=== PATIENT | female | born 1965 | race Caucasian/White ===

== ENCOUNTER 2016-10-25 17:51 | Emergency (ER) | payer OTHER ==
[~2016-10-25] VITALS: Ht 165.1 cm; Wt 61.8 kg
[~2016-10-25 17:51] MED LIST: AMBI10TA PO; AMLO10TA2 PO; BUTA1CAP PO; BUTA1TAB30 PO; CARA1TAB6 PO; CLON1 PO; IPRA17I INH; PAXI20TA PO; PROM25TA5 PO; ROBA750T PO; SERO100T PO; ZANA4CAP PO; ZOFR4TAB PO; ZOFR4TAB3 SL
[2016-10-25 17:54] VITALS: BP 138/84; PULSE 82; RESP 16; TEMP 98; O2SAT 98
== END 2016-10-25 17:52 | disposition left against medical advice (07) ==
LOC: NETRI 17:51
DX: R10.9 Unspecified abdominal pain (principal); Z53.21 Procedure and treatment not carried out due to patient leaving prior to being seen by health care provider
CPT/HCPCS: 99281

== ENCOUNTER 2016-10-27 11:52 | Emergency (ER) | payer OTHER ==
[~2016-10-27] VITALS: Ht 165.1 cm; Wt 60.0 kg
[2016-10-27 11:55] VITALS: BP 140/93; PULSE 93; RESP 16; TEMP 98; O2SAT 95
[2016-10-27] MEDS ORDERED: PROC10TA PO (12:59)
== END 2016-10-27 11:55 | disposition left against medical advice (07) ==
LOC: NED 11:52
DX: R11.10 Vomiting, unspecified (principal); Z53.21 Procedure and treatment not carried out due to patient leaving prior to being seen by health care provider
CPT/HCPCS: 99281

== ENCOUNTER 2016-10-27 12:32 | Emergency (ER) | payer OTHER ==
[~2016-10-27] VITALS: Ht 165.1 cm; Wt 63.0 kg
[2016-10-27 12:40] VITALS: BP 131/85; PULSE 79; RESP 16; TEMP 98.4; O2SAT 98
[2016-10-27] MEDS ORDERED: PROC10TA PO (12:59)
[2016-10-27] MEDS ORDERED: SODIUM CHLOR 0.9% 1000 ML INJ 1,000 ML IV SCH (13:01)
[2016-10-27] MEDS ORDERED: SODIUM CHLORIDE 0.9% FLUSH 5 ML FLUSH IVF PRN (13:15)
[2016-10-27] MEDS ORDERED: ONDANSETRON HCL 4 MG/2 ML VIAL IVP ONE (13:15)
[2016-10-27] MEDS ORDERED: SODIUM CHLOR 0.9% 1000 ML INJ 1,000 ML IV ONE (13:15)
[2016-10-27] MEDS ORDERED: DICYCLOMINE HCL 10 MG CAP PO ONE (13:15)
[2016-10-27] MEDS ORDERED: FAMOTIDINE 20 MG/2 ML VIAL IV PUSH ONE (13:15)
--- NOTE | 2016-10-27 13:24 | PD ---
HPI Chief Complaint: GI Complaint Time Seen by Provider: 13:01 Travel History International Travel<30 days: No Contact w/Intl Traveler<30days: No Traveled to known affect area: No History of Present Illness HPI Patient is a 51-year-old ill who presents to emergency room with complaints of nausea vomiting and diarrhea. Patient reports that for the past week and a half , she has been feeling nauseous and has been dry heaving. Reports that she has also been having diarrhea, reports that she has been having multiple episodes of diarrhea. Reports that she her legs are "crampy" and have been crampy for the past week. Reports concern that she may be dehydrated as she cannot keep up with her fluids at this time. Reports that she follow-up with primary care doctor for her symptoms, reports that stool cultures are pending at this time. Patient reports that she is not taken any antibiotics recently. Reports no sick contacts. Denies chest pain/sob. Denies fevers or chills PFSH Past Medical History Anemia: Yes (PERNICIOUS ANEMIA) Arthritis: No Asthma: Yes Blood Disorders: No Anxiety: Yes (ADHD) Depression: No Heart Rhythm Problems: No Cancer: Yes (skin cancer, MOHS PROCEDURE) Cardiovascular Problems: Yes (IRREGULAR HEART BEAT) High Cholesterol: No Chemotherapy: No Chest Pain: No Congestive Heart Failure: No COPD: No Diabetes: No Diminished Hearing: No Endocrine: Yes (diabetes until wt loss) Gastrointestinal Disorders: Yes (gastritis) GERD: No Genitourinary: No Hepatitis: No Hiatal Hernia: Yes (REPAIRED, MULTIPLE HERNIAS) Heparin Induced Thrombocytopen: No Hypertension: Yes (prior to wt loss) Immune Disorder: No Implanted Vascular Access Dvce: No Medical other: No Musculoskeletal: Yes (ARTHRITIS IN THE NECK) Neurologic: Yes (C5 C6 INJURY FROM RECENT MRI ) Psychiatric: Yes Reproductive: Yes Respiratory: Yes (ASTHMA) Immunizations Current: Yes Radiation Therapy: No Sickle Cell Disease: No Sleep Apnea: No Thyroid Disease: No Ulcer: Yes (ANASTOMOTIC) Influenza Vaccination: Yes PNEUMOCCOCAL Vaccine (Year): 1 ?: Not Menopausal: Yes : 2 Para: 2 Tubal Ligation: Yes (1991) Past Surgical History Abdominal Surgery: Yes (PAYTON - EN - Y & HIATAL HERNIA REPAIR 2008/right colectomy) AICD: No Appendectomy: Yes (REMOVED WITH RIGHT COLECTOMY) Cardiac Surgery: No Cholecystectomy: Yes (1989) Ear Surgery: No Endocrine Surgery: No Eye Surgery: No Genitourinary Surgery: No Gynecologic Surgery: Yes Hysterectomy: Yes Joint Replacement: No Neurologic Surgery: No Oral Surgery: Yes (WISDOM TEETH REMOVED X 4 2009) Pacemaker: No Thoracic Surgery: No Other Surgery: Yes (gastric bypass, annette,hysterectomy,right hemicollectomy, explortary repair ) Social History Alcohol Use: Yes (OCCASIONAL ) Tobacco Use: No (QUIT 1987) Substance Use: No Allergies-Medications (Allergen,Severity, Reaction): Coded Allergies: Aleve (Verified Allergy, Severe, Shortness of Breath, 10/27/16) Ceftin (Unverified Allergy, Severe, SHORTNESS OF BREATH, 10/27/16) Flagyl (Verified Allergy, Severe, couldn't breathe, 10/27/16) Inapsine (Verified Allergy, Severe, SVT, 10/27/16) Metronidazole (Verified Allergy, Severe, Shortness of Breath, 10/27/16) Prevacid (Verified Allergy, Severe, Shortness of Breath, 10/27/16) Stadol (Verified Allergy, Severe, SHOCK, 10/27/16) Sulfa (Verified Allergy, Severe, SOB, WHEEZING, 10/27/16) Lisinopril (Verified Allergy, Unknown, Anaphylaxis, 10/27/16) Naprosyn (Verified Allergy, Unknown, 10/27/16) Compazine (Verified Adverse Reaction, Intermediate, Irritability/Anxiety, 10/27/16) Reported Meds & Prescriptions Reported Meds & Active Scripts Active Phenergan (Promethazine HCl) 25 Mg Tab 25 Mg PO Q6H PRN Zofran Odt (Ondansetron Odt) 4 Mg Tab 4 Mg SL Q8HR PRN Robaxin (Methocarbamol) 750 Mg Tab 750 Mg PO TID Reported Atrovent HFA 12.9 GM Inh (Ipratropium [place]) 17 Mcg/Act Aer 2 Puff INH QID Zofran (Ondansetron HCl) 4 Mg Tab 4 Mg PO Q6HR PRN Ambien (Zolpidem Tartrate) 10 Mg Tab 10 Mg PO HS PRN Zanaflex (Tizanidine HCl) 4 Mg Cap 4 Mg PO TID Klonopin (Clonazepam) 1 Mg Tab 1 Mg PO HS Amlodipine (Amlodipine Besylate) 10 Mg Tab 10 Mg PO DAILY Review of Systems General / Constitutional: No: Fever, Chills Eyes: No: Visual changes HENT: No: Headaches Cardiovascular: No: Chest Pain or Discomfort Respiratory: No: Shortness of Breath Gastrointestinal: Positive: Nausea, Vomiting, Diarrhea, No: Abdominal Pain, Constipation Genitourinary: No: Dysuria Musculoskeletal: No: Pain Skin: No Rash Neurologic: No: Weakness Psychiatric: No: Depression Endocrine: No: Polydipsia Hematologic/Lymphatic: No: Easy Bruising Physical Exam Narrative GENERAL: Nontoxic, no acute distress SKIN: Warm and dry. HEAD: Atraumatic. Normocephalic. EYES: No injection or drainage. ENT: No nasal bleeding or discharge. Mucous membranes pink and moist. NECK: Trachea midline. No JVD. CARDIOVASCULAR: Regular rate and rhythm. No murmur appreciated. RESPIRATORY: No accessory muscle use. Clear to auscultation. Breath sounds equal bilaterally. GASTROINTESTINAL: Abdomen soft, non-tender, nondistended. Hepatic and splenic margins not palpable. MUSCULOSKELETAL: No obvious deformities. No clubbing. No cyanosis. No edema. NEUROLOGICAL: Awake and alert. No obvious cranial nerve deficits. Motor grossly within normal limits. Normal speech. PSYCHIATRIC: Appropriate mood and affect; insight and judgment normal. Data Data Last Documented VS Vital Signs Date Time Temp Pulse Resp B/P Pulse Ox O2 Delivery O2 Flow Rate FiO2 10/27/16 14:42 82 18 134/80 98 Room Air 10/27/16 12:40 98.4 Orders Complete Blood Count With Diff (10/27/16 13:01) Comprehensive Metabolic Panel (10/27/16 13:01) Lipase (10/27/16 13:01) Prothrombin Time / Inr (Pt) (10/27/16 13:01) Act Partial Throm Time (Ptt) (10/27/16 13:01) Urinalysis - C+S If Indicated (10/27/16 13:01) Iv Access Insert/Monitor (10/27/16 13:01) Ondansetron Inj (Zofran Inj) (10/27/16 13:15) Sodium Chlor 0.9% 1000 Ml Inj (Ns 1000 M (10/27/16 13:01) Sodium Chloride 0.9% Flush (Ns Flush) (10/27/16 13:15) Famotidine Inj (Pepcid Inj) (10/27/16 13:15) Dicyclomine (Bentyl) (10/27/16 13:15) Sodium Chlor 0.9% 1000 Ml Inj (Ns 1000 M (10/27/16 13:15) Labs Laboratory Tests Test 10/27/16 10/27/16 13:10 13:20 Urine Collection Type CLEAN CATCH Urine Color YELLOW Urine Turbidity CLEAR Urine pH 5.5 Urine Specific [place] 1.016 Urine Protein NEG mg/dL Urine Glucose (UA) NEG mg/dL Urine Ketones NEG mg/dL Urine Occult Blood NEG Urine Nitrite NEG Urine Bilirubin NEG Urine Leukocyte Esterase NEG Urine WBC 0-2 /hpf Urine Squamous Epithelial 0-5 /hpf Cells Urine Hyaline Casts 6-9 /lpf Microscopic Urinalysis Comment CULT NOT INDICATED Urine Collection Time 13:10 White Blood Count 5.8 TH/MM3 Red Blood Count 5.24 MIL/MM3 Hemoglobin 14.9 GM/DL Hematocrit 45.1 % Mean Corpuscular Volume 86.1 FL Mean Corpuscular Hemoglobin 28.4 PG Mean Corpuscular Hemoglobin 33.0 % Concent Red Cell Distribution Width 14.8 % Platelet Count 204 TH/MM3 Mean Platelet Volume 7.6 FL Neutrophils (%) (Auto) 78.0 % Lymphocytes (%) (Auto) 12.3 % Monocytes (%) (Auto) 8.4 % Eosinophils (%) (Auto) 0.9 % Basophils (%) (Auto) 0.4 % Neutrophils # (Auto) 4.5 TH/MM3 Lymphocytes # (Auto) 0.7 TH/MM3 Monocytes # (Auto) 0.5 TH/MM3 Eosinophils # (Auto) 0.1 TH/MM3 Basophils # (Auto) 0.0 TH/MM3 CBC Comment DIFF FINAL Differential Comment Prothrombin Time 9.9 SEC Prothromb Time International 0.9 RATIO Ratio Activated Partial 26.0 SEC Thromboplast Time Sodium Level 136 MEQ/L Potassium Level 4.2 MEQ/L Chloride Level 101 MEQ/L Carbon Dioxide Level 25.6 MEQ/L Anion Gap 9 MEQ/L Blood Urea Nitrogen 8 MG/DL Creatinine 0.68 MG/DL Estimat Glomerular Filtration 91 ML/MIN Rate Random Glucose 81 MG/DL Calcium Level 8.6 MG/DL Total Bilirubin 0.3 MG/DL Aspartate Amino Transf 27 U/L (AST/SGOT) Alanine Aminotransferase 36 U/L (ALT/SGPT) Alkaline Phosphatase 116 U/L Total Protein 7.9 GM/DL Albumin 3.9 GM/DL Lipase 108 U/L MDM Medical Decision Making Medical Screen Exam Complete: Yes Emergency Medical Condition: Yes Interpretation(s) Vital Signs Date Time Temp Pulse Resp B/P Pulse Ox O2 Delivery O2 Flow Rate FiO2 10/27/16 12:40 98.4 79 16 131/85 98 Differential Diagnosis Gastroenteritis, electrolyte abnormality, C difficile Narrative Course Patient is a 51-year-old female who presents to emergency room with complaints of nausea, dry heaves and diarrhea for the past week and half. Patient reports that she just returned from a chair from [place], reports that symptoms began on her plane ride home from [facility]. Reports that she has no abdominal pain, reports that she has been feeling dehydrated. Reports nausea with dry heaves and multiple episodes of diarrhea. She reports that she was told to go to the emergency room by her primary care doctor for IV hydration. CBC, CMP, ordered. IV hydration as well as antiemetics ordered as well cbc WBC 5.8 Hemoglobin 14.9 Hematocrit 45.1 Platelets 204 BMP Sodium 136 Chloride 101 Potassium 4.2 Carbon dioxide 25.6 BUN 8 Creatinine 0.60 AST 27 ALT 36 Lipase 108 UA: Negative for leuk esterase, negative for nitrites, negative for ketones Patient reports that she is feeling much better after 1 L fluid given to her. Another liter of IVF given to her. Reviewed all labs and studies with patient. Copies of labs given to pt. Abd is soft, nt/nd, no peritoneal signs on discharge , will discharge patient to home with instructions to follow up with pcp and return to ER as needed. Diagnosis Primary Impression: Nausea vomiting and diarrhea Patient Instructions: General Instructions Departure Forms: Tests/Procedures, Work Release Enter return to work date: Oct 30, 2016 Additional Instructions: Please follow-up with your primary care doctor Return to ER as needed Please drink plenty of fluids and stay hydrated Disposition: 01 DISCHARGE HOME Condition: Stable DavTari Sai DO Oct 27, 2016 13:24
[2016-10-27 13:28] LABS: BLOOD, URINE NEG (NEG); GLUCOSE,URINE NEG (NEG); KETONE, URINE NEG (NEG); NITRITE,URINE NEG (NEG); PH, URINE 5.5 (5.0-8.5)
[2016-10-27 13:28] LABS: AUTOMATED NEUTROPHIL # 4.5 TH/MM3 (1.8-7.7); BASOPHIL % 0.4 % (0.0-2.0); EOSINOPHIL # 0.1 TH/MM3 (0-0.4); EOSINOPHIL % 0.9 % (0.0-4.0); HEMATOCRIT 45.1 % (35.0-46.0); HEMO FLAGS DIFF FINAL; LYMPH % 12.3 % (9.0-44.0); LYMPHOCYTE # 0.7 TH/MM3 (1.0-4.8); MEAN CELL VOLUME 86.1 FL (80.0-100.0); MEAN CORPUSCULAR HEMOGLOBIN 28.4 PG (27.0-34.0); MONO % 8.4 % (0.0-8.0); PLATELET COUNT 204 TH/MM3 (150-450); RED BLOOD COUNT 5.24 MIL/MM3 (4.00-5.30); RED CELL DISTRIBUTION WIDTH 14.8 % (11.6-17.2); WHITE BLOOD COUNT 5.8 TH/MM3 (4.0-11.0)
[2016-10-27 13:35] VITALS: BP 109/76; PULSE 77; RESP 16; O2SAT 98
[2016-10-27 13:36] LABS: CHLORIDE 101 MEQ/L (98-107); POTASSIUM 4.2 MEQ/L (3.5-5.1); SODIUM (NA) 136 MEQ/L (136-145)
[2016-10-27 13:41] LABS: ANION GAP 9 MEQ/L (5-15); BICARBONATE 25.6 MEQ/L (21.0-32.0); BLOOD UREA NITROGEN 8 MG/DL (7-18); INTERNATIONAL NORMALIZED RATIO 0.9 RATIO; PROTHROMBIN TIME - PATIENT 9.9 SEC (9.8-11.6)
[2016-10-27 13:42] LABS: METHOD OF COLLECTION CLEAN CATCH; URINE COLOR YELLOW (YELLW/STRAW)
[2016-10-27 13:43] LABS: COMMENT (UR) CULT NOT INDICATED; CULTURE IF INDICATED CULT NOT INDICATED; SQUAMOUS EPITHELIAL CELL URINE 0-5 /hpf (0-5); WBC, URINE 0-2 /hpf (0-5)
[2016-10-27 13:44] LABS: ALT (GPT) 36 U/L (10-53); AST (GOT) 27 U/L (15-37); GLOMERULAR FILTRATION RATE 91 ML/MIN (>89)
[2016-10-27 13:46] LABS: TOTAL BILIRUBIN ADULT 0.3 MG/DL (0.2-1.0)
[2016-10-27 13:47] LABS: ALKALINE PHOSPHATASE 116 U/L (45-117)
[2016-10-27 14:42] VITALS: BP 134/80; PULSE 82; RESP 18; O2SAT 98
== END 2016-10-27 15:07 | disposition home or self-care (01) ==
LOC: PHED 12:32
DX: R11.2 Nausea with vomiting, unspecified (principal); R19.7 Diarrhea, unspecified; J45.909 Unspecified asthma, uncomplicated
CPT/HCPCS: 80053; 81001; 83690; 85025; 85610; 85730; 96361; 96374; 96375; 99284; J2405; J7030

== ENCOUNTER 2016-12-15 19:22 | Emergency (ER) | payer OTHER ==
[~2016-12-15] VITALS: Ht 165.1 cm; Wt 64.8 kg
[~2016-12-15 19:22] MED LIST changes: -AMBI10TA PO; -BUTA1CAP PO; -CARA1TAB6 PO; -IPRA17I INH; -PAXI20TA PO; +PROC10TA PO; -SERO100T PO; -ZANA4CAP PO; -ZOFR4TAB3 SL
[2016-12-15 19:28] VITALS: BP 165/106; PULSE 78; RESP 18; TEMP 98.6; O2SAT 99
[2016-12-15 19:44] VITALS: BP 149/105; PULSE 74; RESP 18; O2SAT 99
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
[2016-12-15 20:33] VITALS: BP 131/85
== END 2016-12-15 20:47 | disposition home or self-care (01) ==
LOC: PHED 19:22
DX: I10 Essential (primary) hypertension (principal); F41.9 Anxiety disorder, unspecified
CPT/HCPCS: 99283

== ENCOUNTER → 2016-12-27 | Outpatient (CLI) | payer OTHER ==
[~2016-12-27] VITALS: Ht 165.1 cm; Wt 66.4 kg
[~2016-12-27] MED LIST changes: +ACYC800T PO; +AMLO10 PO; +BARIATRIC VITAMIN PO; +CHLORHEXIDINE GLUCONATE 2 % 1 PACK (2 CLOTHS) TOPICAL PRN; +FURO1TAB60 PO; +HYDR-3516 PO; +INSULIN HUMAN REGULAR 1,000 UNITS/10 ML VIAL SQ PRN; +K-TA10TA PO; +LACTATED RINGER'S 1000 ML IV PRN; +METOPROLOL TARTRATE 25 MG TAB PO PRN; +ONDANSETRON HCL 4 MG/2 ML VIAL ONE; +POVIDONE IODINE 5% (ANTISEPSIS KIT) 4 APPLICATIONS EACH NARE PRN; -PROC10TA PO; +PROPOFOL 200 MG/20 ML AMP IV ONE; +PROT40TA PO; +SODIUM CHLORID 0.9% 500 ML IV PRN; -ZOFR4TAB PO
[2016-12-27 07:56] VITALS: BP 141/88; PULSE 74; RESP 20; TEMP 97.9; O2SAT 97
--- NOTE | 2016-12-27 10:33 | GIPROC ---
[facility] [address] [facility]. [facility], [address] EGD PROCEDURE REPORT EXAM DATE: 12/27/2016 PATIENT NAME: Shante Allan MR #: [id number] BIRTHDATE: 1965 ATTENDING: Sandeep Loja MD ORDER #: [id number] COUPON REDEMPTION CLERK: Quoc Abel and Breann Devine STATUS: outpatient INDICATIONS: The patient is a 51 yr old female here for an EGD due to vomiting and dyspepsia PROCEDURE PERFORMED: EGD w/ biopsy MEDICATIONS: Per Anesthesia and None. TOPICAL ANESTHETIC: CONSENT: The patient understands the risks and benefits of the procedure and understands that these risks include, but are not limited to: sedation, allergic reaction, infection, perforation and/or bleeding. Alternative means of evaluation and treatment include, among others: physical exam, x-rays, and/or surgical intervention. The patient elects to proceed with this endoscopic procedure. medical equipment was checked for proper function. Hand hygiene and appropriate measures for infection prevention was taken. After the risks, benefits and alternatives of the procedure were thoroughly explained, Informed consent was verified, confirmed and timeout was successfully executed by the treatment team. The patient was anesthetized with topical anesthesia and the [employer] [id number] endoscope was introduced through the mouth and advanced to the second portion of the duodenum. Retroflexed views revealed no abnormalities The gastroscope was then slowly withdrawn and removed. STOMACH: There was erythematous moderate gastritis at the gastro-duodenal anastamosis. A biopsy was performed using cold forceps. Sample sent for histology. ADVERSE EVENTS: There were no complications. IMPRESSIONS: 1. There was erythematous gastritis at the gastro-duodenal anastamosis; biopsy was performed 2. Retroflexed views revealed no abnormalities RECOMMENDATIONS: 1. Await biopsy results. Biopsy results will not be ready for 7-10 days. If you don't hear from us in two weeks, call our office for biopsy results. 2. Anti-reflux regimen 3. Continue PPI 4. Avoid NSAIDS PATIENT CONDITION: stable DISPOSITION: Home REPEAT EXAM: Return 1 year EGD pending biopsy results Sandeep Loja MD eSigned: Sandeep Loja MD 12/27/2016 10:33 AM cc: Arlyn Cavazos M.D.
[2016-12-27 10:40] VITALS: TEMP 98.5
[2016-12-27 11:00] VITALS: BP 139/79; PULSE 83; RESP 16; O2SAT 95
== END ==
LOC: HEND 06:24
PROVIDERS: ATTEND Internal Medicine Gastroenterology
DX: K29.70 Gastritis, unspecified, without bleeding (principal); R11.2 Nausea with vomiting, unspecified; R10.13 Epigastric pain; K92.1 Melena; I10 Essential (primary) hypertension; Z98.84 Bariatric surgery status
CPT/HCPCS: 00740; 43239; 88305; J2405

== ENCOUNTER 2017-01-07 08:01 | Emergency (ER) | payer OTHER ==
[~2017-01-07] VITALS: Ht 162.6 cm; Wt 66.7 kg
[~2017-01-07 08:01] MED LIST changes: -ACYC800T PO; -AMLO10 PO; -BARIATRIC VITAMIN PO; -CHLORHEXIDINE GLUCONATE 2 % 1 PACK (2 CLOTHS) TOPICAL PRN; -FURO1TAB60 PO; -HYDR-3516 PO; -INSULIN HUMAN REGULAR 1,000 UNITS/10 ML VIAL SQ PRN; -K-TA10TA PO; -LACTATED RINGER'S 1000 ML IV PRN; -METOPROLOL TARTRATE 25 MG TAB PO PRN; -ONDANSETRON HCL 4 MG/2 ML VIAL ONE; -POVIDONE IODINE 5% (ANTISEPSIS KIT) 4 APPLICATIONS EACH NARE PRN; -PROM25TA5 PO; -PROPOFOL 200 MG/20 ML AMP IV ONE; -PROT40TA PO; -SODIUM CHLORID 0.9% 500 ML IV PRN
[2017-01-07 08:05] VITALS: BP 121/83; PULSE 104; RESP 16; TEMP 98.5; O2SAT 97
[2017-01-07] MEDS ORDERED: AMLO10 PO (08:18)
[2017-01-07] MEDS ORDERED: BARIATRIC VITAMIN PO (08:18)
[2017-01-07] MEDS ORDERED: PROT40TA PO (08:18)
[2017-01-07] MEDS ORDERED: FURO1TAB60 PO (08:18)
[2017-01-07] MEDS ORDERED: K-TA10TA PO (08:18)
[2017-01-07] MEDS ORDERED: ACYC800T PO (08:24)
[2017-01-07] MEDS ORDERED: HYDR-3516 PO (08:24)
--- NOTE | 2017-01-07 08:26 | PD ---
HPI Chief Complaint: Skin Problem Time Seen by Provider: 08:21 Travel History International Travel<30 days: No Contact w/Intl Traveler<30days: No Traveled to known affect area: No History of Present Illness HPI Patient presents with complaints of shingles in the left inguinal region, onset last night. Practicing general wound care. Denies any nausea vomiting diarrhea or fever. Past medical history for hypertension. PFSH Past Medical History Hx Anticoagulant Therapy: No Anemia: Yes (PERNICIOUS ANEMIA) Arthritis: No Asthma: Yes Blood Disorders: No Anxiety: Yes (ADHD) Depression: No Heart Rhythm Problems: No Cancer: Yes (skin cancer, MOHS PROCEDURE) Cardiovascular Problems: Yes (HTN) High Cholesterol: No Chemotherapy: No Chest Pain: No Congestive Heart Failure: No COPD: No Diabetes: No Diminished Hearing: No Endocrine: Yes (diabetes until wt loss) Gastrointestinal Disorders: Yes (gastritis) GERD: No Genitourinary: No Hepatitis: No Hiatal Hernia: Yes (REPAIRED, MULTIPLE HERNIAS) Heparin Induced Thrombocytopen: No Hypertension: Yes (prior to wt loss) Immune Disorder: No Implanted Vascular Access Dvce: No Medical other: No Musculoskeletal: Yes (ARTHRITIS IN THE NECK) Neurologic: Yes (C5 C6 INJURY FROM RECENT MRI ) Psychiatric: Yes Reproductive: Yes Respiratory: Yes Immunizations Current: Yes Radiation Therapy: No Sickle Cell Disease: No Sleep Apnea: No Thyroid Disease: No Ulcer: Yes (ANASTOMOTIC) PNEUMOCCOCAL Vaccine (Year): 1 ?: Not Menopausal: Yes : 2 Para: 2 Tubal Ligation: Yes (1991) Past Surgical History Abdominal Surgery: Yes (PAYTON - EN - Y & HIATAL HERNIA REPAIR 2008/right colectomy) AICD: No Appendectomy: Yes (REMOVED WITH RIGHT COLECTOMY) Cardiac Surgery: No Cholecystectomy: Yes (1989) Ear Surgery: No Endocrine Surgery: No Eye Surgery: No Genitourinary Surgery: No Gynecologic Surgery: Yes Hysterectomy: Yes Joint Replacement: No Neurologic Surgery: No Oral Surgery: Yes (WISDOM TEETH REMOVED X 4 2009) Pacemaker: No Thoracic Surgery: No Other Surgery: Yes (gastric bypass, annette,hysterectomy,right hemicollectomy, explortary repair ) Social History Alcohol Use: Yes (OCCASIONAL ) Tobacco Use: No (QUIT 1987) Substance Use: No Allergies-Medications (Allergen,Severity, Reaction): Coded Allergies: Aleve (Verified Allergy, Severe, Shortness of Breath, 4/16/17) Ceftin (Unverified Allergy, Severe, SHORTNESS OF BREATH, 01/07/17) Flagyl (Verified Allergy, Severe, couldn't breathe, 01/07/17) Inapsine (Verified Allergy, Severe, SVT, 01/07/17) Metronidazole (Verified Allergy, Severe, Shortness of Breath, 01/07/17) Prevacid (Verified Allergy, Severe, Shortness of Breath, 01/07/17) Stadol (Verified Allergy, Severe, SHOCK, 01/07/17) Sulfa (Verified Allergy, Severe, SOB, WHEEZING, 01/07/17) Lisinopril (Verified Allergy, Unknown, Anaphylaxis, 01/07/17) Naprosyn (Verified Allergy, Unknown, 01/07/17) Compazine (Verified Adverse Reaction, Intermediate, Irritability/Anxiety, 01/07/17) Reported Meds & Prescriptions Reported Meds & Active Scripts Active Robaxin (Methocarbamol) 750 Mg Tab 750 Mg PO TID Reported Protonix (Pantoprazole Sodium) 40 Mg Tab 40 Mg PO BID [Bariatric Vitamin] 1 Tab PO DAILY Norvasc (Amlodipine Besylate) 10 Mg Tab 10 Mg PO DAILY K-Tab (Potassium Chloride) 10 Meq Tab 10 Meq PO DAILY Lasix (Furosemide) 40 Mg Tab 40 Mg PO DAILY Butalbital-Acetaminophen 50-325 Mg Tab 1-2 Tab PO Q4HR PRN Do not exceed 6 tablets per day. Review of Systems General / Constitutional: No: Fever Eyes: No: Visual changes HENT: No: Headaches Cardiovascular: No: Chest Pain or Discomfort Respiratory: No: Shortness of Breath Gastrointestinal: No: Abdominal Pain Genitourinary: No: Dysuria Musculoskeletal: No: Pain Skin: Positive Rash Neurologic: No: Weakness Psychiatric: No: Depression Endocrine: No: Polydipsia Hematologic/Lymphatic: No: Easy Bruising Physical Exam Narrative GENERAL: Well-nourished, well-developed patient. SKIN: Focused skin assessment warm/dry. HEAD: Normocephalic. EYES: No scleral icterus. No injection or drainage. NECK: Supple, trachea midline. No JVD or lymphadenopathy. CARDIOVASCULAR: Regular rate and rhythm without murmurs, gallops, or rubs. RESPIRATORY: Breath sounds equal bilaterally. No accessory muscle use. GASTROINTESTINAL: Abdomen soft, non-tender, nondistended. MUSCULOSKELETAL: No cyanosis, or edema. BACK: Nontender without obvious deformity. No CVA tenderness. Herpetic lesions left inguinal region, T12-L1 region, non-cellulitic Data Data Last Documented VS Vital Signs Date Time Temp Pulse Resp B/P Pulse Ox O2 Delivery O2 Flow Rate FiO2 01/07/17 08:05 98.5 104 16 121/83 97 MDM Medical Decision Making Medical Screen Exam Complete: Yes Emergency Medical Condition: Yes Differential Diagnosis Shingles, viral exanthem, contact dermatitis Narrative Course Assessment and plan discussed with patient at bedside Diagnosis Primary Impression: Shingles Qualified Code: B02.9 - Herpes zoster without complication Patient Instructions: General Instructions Additional Instructions: Discussed general wound care, follow up PCP Med/Other Pt SpecificInfo: Prescription(s) given Scripts Hydrocodone-Acetaminophen 5-325 mg Tab1 Tab PO Q6H PRN (PAIN) #30 TAB Ref 0 Prov:Win Gandhi MD 01/07/17 Acyclovir 800 Mg Omg797 Mg PO TID 7 Days Ref 0 Prov:Win Gandhi MD 01/07/17 Disposition: 01 DISCHARGE HOME Condition: Good Win Gandhi MD Jan 07, 2017 08:26
== END 2017-01-07 08:31 | disposition home or self-care (01) ==
LOC: PHEFT 08:01
DX: B02.9 Zoster without complications (principal); I10 Essential (primary) hypertension; J45.909 Unspecified asthma, uncomplicated; D51.0 Vitamin B12 deficiency anemia due to intrinsic factor deficiency; Z98.84 Bariatric surgery status; Z87.891 Personal history of nicotine dependence
CPT/HCPCS: 99282